=== PATIENT | male | born 1980 | race Caucasian/White ===

== ENCOUNTER 2019-01-13 13:39 | Emergency (ER) | payer MEDICAID ==
--- NOTE | 2019-01-13 14:50 | ER Document Report ---
ED Medical Screen (RME) - General Chief Complaint: Seizure Stated Complaint: POSSIBLE SEIZURE Time Seen by Provider: 01/13/19 14:38 Primary Care Provider: MINOR,NO [Primary Care Provider] - Follow up as needed Notes: Patient is a 38-year-old male that presents to the emergency department for chief complaint of syncopal episode versus seizure today. Patient was doing a work activity in a group session, and apparently had turned pale, and had a brief loss of consciousness, where he put his head down into his arm for less than 1 minute, no reported seizure activity, no history of seizures, patient states he did feel lightheaded before this episode, denies having any chest pain, shortness of breath, nausea or vomiting at this time.. ROS: Other than noted above, the 12 point review of systems was reviewed with the patient and were negative, all pertinent findings are included in the HPI. PHYSICAL EXAMINATION: Vital signs reviewed. GENERAL: Well-appearing, well-nourished and in no acute distress. HEAD: Atraumatic, normocephalic. EYES: Pupils equal round extraocular movements intact, conjunctiva are normal. ENT: Nares patent NECK: Normal range of motion CV: Heart regular rate and rhythm LUNGS: No respiratory distress Musculoskeletal: Normal range of motion NEUROLOGICAL: Normal speech PSYCH: Normal mood, normal affect. MDM: Patient seen and examined for rapid initial assessment. Vital signs reviewed. A comprehensive ED assessment and evaluation of the patient, analysis of test results and completion of the medical decision making process will be conducted by additional ED providers. *Note is created using voice recognition software and may contain spelling, syntax or grammatical errors. - Related Data Allergies/Adverse Reactions: divalproex sodium [From Depakote] Allergy (Verified 01/13/19 13:41) Past Medical History - Social History Frequency of alcohol use: None Renal/ Medical History: Denies: Hx Peritoneal Dialysis Physical Exam - Vital signs Vitals: Temp Pulse Resp BP Pulse Ox 98.9 F 72 20 141/80 H 97 01/13/19 14:07 01/13/19 14:07 01/13/19 14:07 01/13/19 14:07 01/13/19 14:07 Course - Vital Signs Vital signs: Temp Pulse Resp BP Pulse Ox 98.9 F 72 20 141/80 H 97 01/13/19 14:07 01/13/19 14:07 01/13/19 14:07 01/13/19 14:07 01/13/19 14:07 Doctor's Discharge - Discharge Referrals: LOCAL,NO [Primary Care Provider] - Follow up as needed
[2019-01-13] MEDS ORDERED: NORMAL SALINE 1000 ML 1,000 ML IV ONE (14:51)
[2019-01-13 15:35] LABS: ABSOLUTE EOSINOPHILS # (AUTO) 0.1 10^3/uL (0.0-0.6); ABSOLUTE LYMPHOCYTES (AUTO) 1.6 10^3/uL (0.5-4.7); ABSOLUTE MONOCYTES (AUTO) 0.9 10^3/uL (0.1-1.4); ABSOLUTE NEUT (AUTO) 5.5 10^3/uL (1.7-8.2); BASOPHILS % (AUTO) 0.4 % (0-2); EOSINOPHILS % (AUTO) 1.2 % (0-6); HEMATOCRIT 44.6 % (37.9-51.0); LYMPHOCYTES % (AUTO) 19.7 % (13-45); MEAN CORPUSCULAR HGB CONC 35.8 g/dL (32.0-36.0); MEAN CORPUSCULAR VOLUME 89 fl (80-97); MONOCYTES % (AUTO) 10.8 % (3-13); PLATELET COUNT 184 10^3/uL (150-450); RED BLOOD COUNT 4.99 10^6/uL (4.35-5.55); RED CELL DISTRIBUTION WIDTH 13.5 % (11.5-14.0); SEGMENTED NEUTROPHILS % (AUTO) 67.9 % (42-78); TOTAL CELLS COUNTED % (AUTO) 100 %
--- NOTE | 2019-01-13 15:38 | RADIOLOGY REPORT (SQ) ---
EXAM DESCRIPTION: CHEST 2 VIEWS COMPLETED DATE/TIME: 01/13/2019 3:14 pm REASON FOR STUDY: syncope COMPARISON: None. EXAM PARAMETERS: NUMBER OF VIEWS: two views TECHNIQUE: Digital Frontal and Lateral radiographic views of the chest acquired. RADIATION DOSE: NA LIMITATIONS: none FINDINGS: LUNGS AND PLEURA: No opacities, masses or pneumothorax. No pleural effusion. MEDIASTINUM AND HILAR STRUCTURES: No masses or contour abnormalities. HEART AND VASCULAR STRUCTURES: Heart normal size. No evidence for failure. BONES: No acute findings. HARDWARE: None in the chest. OTHER: No other significant finding. IMPRESSION: NO ACUTE RADIOGRAPHIC FINDING IN THE CHEST. TECHNICAL DOCUMENTATION: JOB ID: [id number] [employer]- All Rights Reserved Reading location - IP/workstation name: [email or web address]
[2019-01-13 15:53] LABS: ALANINE AMINOTRANSFERASE 19 U/L (21-72); ALBUMIN 4.6 g/dL (3.5-5.0); ALKALINE PHOSPHATASE 68 U/L (38-126); ANION GAP 9 (5-19); ASPARTATE AMINO TRANSFERASE 18 U/L (17-59); BILIRUBIN,DIRECT 0.3 mg/dL (0.0-0.4); BILIRUBIN,TOTAL 2.3 mg/dL (0.2-1.3); BLOOD UREA NITROGEN 13 mg/dL (7-20); CALCIUM 10.1 mg/dL (8.4-10.2); CARBON DIOXIDE 30 mmol/L (22-30); CHLORIDE 97 mmol/L (98-107); GLUCOSE 121 mg/dL (75-110); POTASSIUM 4.3 mmol/L (3.6-5.0); SODIUM 136.3 mmol/L (137-145); TOTAL PROTEIN 7.6 g/dL (6.3-8.2)
[2019-01-13 17:47] LABS: LIPASE 57.6 U/L (23-300)
--- NOTE | 2019-01-13 18:15 | ER Document Report ---
Addendum entered and electronically signed by RENEE ARANDA NP 01/14/19 19:38: Course - Re-evaluation Re-evalutation: 01/14/19 12:20 Called and spoke with patient's caregiver Jens Hedrick and gave him referral information for a local neurologist. Mr. Hedrick advised that patient does need to see his primary doctor for a referral to a neurologist. Mr. Hedrick also advised that patient would need to have imaging such as MRI as well as an electroencephalogram performed on an outpatient basis to further evaluate the seizure-like activity that he had on yesterday's visit. Mr. Hedrick states that his nephew is at his normal baseline without any complaints today. Mr. Hedrick reports that patient is going to have an appointment next week to see his primary doctor. Mr. Hedrick was encouraged to have patient return immediately for any new or worsening symptoms - Vital Signs Vital signs: Temp Pulse Resp BP Pulse Ox 98.4 F 72 17 135/74 H 97 01/13/19 19:00 01/13/19 14:07 01/13/19 18:01 01/13/19 19:00 01/13/19 19:00 - Laboratory Result Diagrams: 01/13/19 14:51 01/13/19 15:45 Laboratory results interpreted by me: 01/13/19 15:45 Sodium 136.3 L Chloride 97 L Glucose 121 H Total Bilirubin 2.3 H ALT 19 L Original Note: ED Seizure - General Chief Complaint: Seizure Stated Complaint: POSSIBLE SEIZURE Time Seen by Provider: 01/13/19 14:38 Primary Care Provider: MARYCARMEN SCHAEFER PA-C [Primary Care Provider] - Follow up tomorrow Information source: Legal Guardian Cannot obtain history due to: Mentally challenged Notes: Patient was doing arts and crafts today with a group around 1045. Patient had an episode where he became pale slumped over the table and started to convulse and became sweaty. Witnesses state that initially after he woke up he was disoriented for a short period. Witnessed episode lasted only for about a minute. Patient does not have any history of recent illness, no history of head injury, no history of seizures. Patient has since then been at his normal baseline mental status. Patient denies any complaints at this time. Patient without any headache, chest pain, nausea vomiting, abdominal pain or back pain. - HPI Quality of pain: No pain Pain Level: Denies History of: denies: CVA Character of seizure: Complete loss/conscious, Generalized shaking. No: Incontinent stool, Incontinent bladder Post-ictal symptoms: Confusion Injuries: None - Related Data Allergies/Adverse Reactions: divalproex sodium [From Depakote] Allergy (Verified 01/13/19 13:41) Past Medical History - General Information source: Patient, Legal Guardian - Social History Smoking Status: Never Smoker Frequency of alcohol use: None Drug Abuse: None Lives with: Family Family History: Reviewed & Not Pertinent Patient has suicidal ideation: No Patient has homicidal ideation: No - Medical History Medical History: Other - Autism, MR - Past Medical History Cardiac Medical History: Reports: Other - Congenital heart disease, TIA PVD Renal/ Medical History: Denies: Hx Peritoneal Dialysis Psychiatric Medical History: Reports: Hx Bipolar Disorder Review of Systems - Review of Systems Constitutional: No symptoms reported. denies: Fever, Recent illness EENT: No symptoms reported. denies: Throat pain Cardiovascular: No symptoms reported. denies: Chest pain, Palpitations Respiratory: No symptoms reported. denies: Cough, Short of breath Gastrointestinal: No symptoms reported. denies: Abdominal pain, Diarrhea, Nausea, Vomiting Genitourinary: No symptoms reported. denies: Dysuria, Flank pain Male Genitourinary: No symptoms reported Musculoskeletal: No symptoms reported. denies: Back pain Skin: No symptoms reported Hematologic/Lymphatic: No symptoms reported Neurological/Psychological: Seizure - Questionable, Lost consciousness. denies: Headaches Physical Exam - Vital signs Vitals: Temp Pulse Resp BP Pulse Ox 98.9 F 72 20 141/80 H 97 01/13/19 14:07 01/13/19 14:07 01/13/19 14:07 01/13/19 14:07 01/13/19 14:07 - General General appearance: Appears well, Alert In distress: None - HEENT Head: Normocephalic, Atraumatic. No: Abrasions, Mcwilliams's sign, Ecchymosis, [place]'s eyes, Tenderness Eyes: Normal Conjunctiva: Normal Extraocular movements intact: Yes Eyelashes: Normal Pupils: PERRL Ears: Normal External canal: Normal Tympanic membrane: Normal Nasal: Normal Mouth/Lips: Normal Mucous membranes: Normal Pharynx: Normal Neck: Normal, Supple. No: Lymphadenopathy, Meningismus - Respiratory Respiratory status: No respiratory distress Chest status: Nontender Breath sounds: Normal. No: Rales, Rhonchi, Stridor, Wheezing Chest palpation: Normal - Cardiovascular Rhythm: Regular Heart sounds: S1 appreciated, S2 appreciated - Abdominal Inspection: Normal Distension: No distension Bowel sounds: Normal Tenderness: Nontender Organomegaly: No organomegaly - Back Back: Normal, Nontender. No: CVA tenderness - Extremities General upper extremity: Normal inspection, Nontender, Normal ROM General lower extremity: Normal inspection, Nontender, Normal ROM - Neurological Neuro grossly intact: Yes Cognition: Normal [place] Coma Scale Eye Opening: Spontaneous [place]ef[place] Coma Scale Verbal: Oriented [place] Coma Scale Motor: Obeys Commands [place] Coma Scale Total: 15 Speech: Normal. No: Dysarthria Cranial nerves: Normal. No: Facial palsy, Gaze palsy, Tongue deviation Cerebellar coordination: Normal, Heel-st, Finger-nose rhombey, Rapid alt. movements Motor strength normal: LUE, RUE, LLE, RLE Additional motor exam normals: Equal bung driver - Psychological Associated symptoms: Normal affect, Normal mood - Skin Skin Temperature: Warm Skin Moisture: Dry Skin Color: Normal Course - Re-evaluation Re-evalutation: 01/13/19 18:[address] wood regarding patient presentation and diagnostic evaluation. Agrees with plan for repeat troponin testing at this time. Does not feel that patient would require admission, as reported history of events seems more consistent with seizure type activity. 01/13/19 19:[address] Hanna, guarding patient's plan disposition. Does not recommend any imaging at this time as patient has returned to his normal baseline and is without any complaints at this time. Patient can have further neurologic evaluation on outpatient basis. Pt's delta troponin without any elevation. Patient without any complaints at present. No additional seizure like activity observed during ER stay. Patient at his normal mental status at baseline per family member at bedside. Patient does have mild elevation in the total bilirubin, no comparison labs available. Family encouraged to have patient follow-up with primary doctor for recheck and to have these labs reevaluated. Patient without any other elevation in his liver function tests at this time. Patient without any chest, abdominal, or back pain. Patient with heart score of 1. Patient without any headache symptoms. Patient otherwise neurologically intact. Good return precautions discussed with family and patient. - Vital Signs Vital signs: Temp Pulse Resp BP Pulse Ox 98.4 F 72 17 135/74 H 97 01/13/19 19:00 01/13/19 14:07 01/13/19 18:01 01/13/19 19:00 01/13/19 19:00 - Laboratory Result Diagrams: 01/13/19 14:51 01/13/19 15:45 Laboratory results interpreted by me: 01/13/19 15:45 Sodium 136.3 L Chloride 97 L Glucose 121 H Total Bilirubin 2.3 H ALT 19 L 01/13/19 19:39 Labs- Entire Visit 01/13/19 01/13/19 01/13/19 14:51 15:45 15:45 WBC 8.0 RBC 4.99 Hgb 16.0 Hct 44.6 MCV 89 MCH 32.0 MCHC 35.8 RDW 13.5 Plt Count 184 Seg Neutrophils % 67.9 Lymphocytes % 19.7 Monocytes % 10.8 Eosinophils % 1.2 Basophils % 0.4 Absolute Neutrophils 5.5 Absolute Lymphocytes 1.6 Absolute Monocytes 0.9 Absolute Eosinophils 0.1 Absolute Basophils 0.0 Sodium 136.3 L Potassium 4.3 Chloride 97 L Carbon Dioxide 30 Anion Gap 9 BUN 13 Creatinine 0.95 Est GFR ( Amer) > 60 Est GFR (Non-Af Amer) > 60 Glucose 121 H Calcium 10.1 Total Bilirubin 2.3 H Direct Bilirubin 0.3 Neonat Total Bilirubin Not Reportable Neonat Direct Bilirubin Not Reportable Neonat Indirect Bili Not Reportable AST 18 ALT 19 L Alkaline Phosphatase 68 Troponin I < 0.012 Total Protein 7.6 Albumin 4.6 Lipase Urine Color Urine Appearance Urine pH Ur Specific [place] Urine Protein Urine Glucose (UA) Urine Ketones Urine Blood Urine Nitrite Urine Bilirubin Urine Urobilinogen Ur Leukocyte Esterase Urine WBC (Auto) Urine RBC (Auto) Urine Mucus (Auto) Urine Ascorbic Acid 01/13/19 01/13/19 01/13/19 15:45 18:25 18:37 WBC RBC Hgb Hct MCV MCH MCHC RDW Plt Count Seg Neutrophils % Lymphocytes % Monocytes % Eosinophils % Basophils % Absolute Neutrophils Absolute Lymphocytes Absolute Monocytes Absolute Eosinophils Absolute Basophils Sodium Potassium Chloride Carbon Dioxide Anion Gap BUN Creatinine Est GFR ( Amer) Est GFR (Non-Af Amer) Glucose Calcium Total Bilirubin Direct Bilirubin Neonat Total Bilirubin Neonat Direct Bilirubin Neonat Indirect Bili AST ALT Alkaline Phosphatase Troponin I < 0.012 Total Protein Albumin Lipase 57.6 Urine Color STRAW Urine Appearance CLEAR Urine pH 7.0 Ur Specific [place] 1.004 Urine Protein NEGATIVE Urine Glucose (UA) NEGATIVE Urine Ketones NEGATIVE Urine Blood NEGATIVE Urine Nitrite NEGATIVE Urine Bilirubin NEGATIVE Urine Urobilinogen NEGATIVE Ur Leukocyte Esterase NEGATIVE Urine WBC (Auto) 0 Urine RBC (Auto) 0 Urine Mucus (Auto) RARE Urine Ascorbic Acid NEGATIVE - Diagnostic Test Radiology reviewed: Reports reviewed - EKG Interpretation by Me EKG shows normal: Sinus rhythm [place]/QRS: RBBB Additional EKG results interpreted by me: 01/13/19 19:[address] elevation, QTc 403 Discharge - Discharge Clinical Impression: Seizure-like activity Condition: Stable Disposition: HOME, SELF-CARE Instructions: New Seizure ([facility]) Additional Instructions: Return immediately for any new or worsening symptoms Followup with your primary care provider, call tomorrow to make a followup appointment Referrals: MARYCARMEN SCHAEFER PA-C [Primary Care Provider] - Follow up tomorrow
[2019-01-13 18:46] LABS: APPEARANCE,URINE CLEAR; BILIRUBIN,URINE NEGATIVE (NEGATIVE); COLOR,URINE STRAW; GLUCOSE, URINE NEGATIVE (NEGATIVE); KETONES,URINE NEGATIVE (NEGATIVE); LEUKOCYTE ESTERASE,URINE NEGATIVE (NEGATIVE); NITRITE,URINE NEGATIVE (NEGATIVE); PROTEIN,URINE NEGATIVE (NEGATIVE); URINE SPECIFIC GRAVITY 1.004; UROBILINOGEN,URINE NEGATIVE mg/dL (<2.0)
[2019-01-13 20:03] VITALS: BP 135/74
--- NOTE | 2019-01-13 20:15 | EKG REPORT ---
SEVERITY:- ABNORMAL ECG - SINUS OR ECTOPIC ATRIAL RHYTHM INCOMPLETE RIGHT BUNDLE BRANCH BLOCK : Confirmed by: Shavon Abraham MD 13-Jan-2019 20:14:35
== END 2019-01-13 19:45 | disposition home or self-care (01) ==
LOC: EDBD 13:39 → ER 13:39
DX: R56.9 Unspecified convulsions (principal)
CPT/HCPCS: 93005; 99285; 96360; 36415; 83690; 85025; 80053; 81001; 84484; 71046; 93010; J7030